=== PATIENT | male | born 1990 | race Caucasian/White ===

== ENCOUNTER 2022-12-25 04:15 | Emergency (ER) | payer MEDICAID ==
[~2022-12-25] VITALS: Ht 162.6 cm; Wt 66.8 kg
[2022-12-25] MEDS ORDERED: BENZ1LOZ73 PO (08:27)
[2022-12-25] MEDS ORDERED: NAPR-1176 PO (08:27)
[2022-12-25] MEDS ORDERED: OXYM30SP26 BOTHNSTRLS (08:27)
[2022-12-25] MEDS ORDERED: KETOROLAC 30MG/ML VIAL IM ONE (08:30)
[2022-12-25] MEDS ORDERED: DEXAMETHASONE 4MG/ML 1ML VIAL IM ONE (08:30)
[2022-12-25 10:05] VITALS: BP 121/77
== END 2022-12-25 10:06 | disposition home or self-care (01) ==
LOC: ER 04:15
DX: J06.9 Acute upper respiratory infection, unspecified (principal); M25.511 Pain in right shoulder; G89.29 Other chronic pain; R05.9 Cough, unspecified
CPT/HCPCS: 99281; J1100; J1885